=== PATIENT | male | born 1960 | race Caucasian/White ===

== ENCOUNTER → 2016-12-05 10:07 | Outpatient (CLI) | payer MEDICARE | END | disposition home or self-care (01) | LOC: D.RAD 10:07 | DX: N20.0 Calculus of kidney (principal) ==

== ENCOUNTER 2016-12-05 14:48 | Emergency (ER) | payer OTHER ==
[2016-12-05 15:58] LABS: BASOPHILS 0.2 % (0-2); EOSINOPHILS 1.9 % (0-7); HEMATOCRIT 44.2 % (42.0-54.0); HEMOGLOBIN 15.7 g/dL (13.5-17.5); IMMATURE GRANULOCYTES 0.3 % (0-5); LYMPHOCYTES 25.4 % (15-50); MCH 32.6 pg (26.0-34.0); MCHC 35.5 g/dL (31.0-37.0); MCV 91.9 fL (80.0-100.0); MEAN PLATELET VOLUME 11.5 fL (7.4-10.4); MONOCYTES 8.9 % (2-11); NEUTROPHILS 63.3 % (40-80); PLATELET COUNT 186 10x3/uL (130-400); RBC 4.81 10x6/uL (4.20-6.10); RDW 12.4 % (11.5-14.5); WBC 6.2 10x3/uL (4.8-10.8)
[2016-12-05 16:22] LABS: ALBUMIN 4.1 g/dL (3.4-5.0); ANION GAP 14.8 mmol/L (8-16); BILIRUBIN - TOTAL 0.86 mg/dL (0.2-1.3); CALCIUM 9.5 mg/dL (8.5-10.1); CARBON DIOXIDE 24.8 mmol/L (21.0-32.0); CREATININE - SERUM 1.3 mg/dL (0.6-1.3); POTASSIUM - SERUM 3.6 mmol/L (3.5-5.1); PROTEIN - SERUM 7.3 g/dL (6.4-8.2)
== END 2016-12-05 16:56 | disposition home or self-care (01) ==
LOC: D.ER 14:48
PROVIDERS: Nurse Practitioner Acute Care
DX: G44.209 Tension-type headache, unspecified, not intractable (principal)